=== PATIENT | male | born 1935 | race Caucasian/White ===

== ENCOUNTER 2020-05-30 14:04 | Outpatient (REF) | payer MEDICARE, SELFPAY ==
[2020-05-30 14:59] LABS: Hemoglobin 15.8 g/dl (14.0-18.0); Mean Corpuscular HGB Conc 32.9 g/dl (31.0-36.0); Mean Corpuscular Hemoglobin 28.1 pg (27.0-33.0); Mean Corpuscular Volume 85.4 fL (80-98); Mean Platelet Volume 10.8 fL (9.4-12.4); Platelet Count 275 X10*3/uL (160-400); Red Blood Count 5.62 X10*6/uL (4.60-5.80); Red Cell Distribution Width 13.5 % (11.0-16.0); White Blood Count 9.2 X10*3/uL (4.8-10.8)
[2020-05-30 15:27] LABS: Alanine Aminotransferase 18 U/L (0-40); Albumin Level 4.7 g/dL (3.5-5.0); Alkaline Phosphatase 83 U/L (39-117); Anion Gap 11 (12-20); Aspartate Amino Transferase 20 U/L (5-37); Bilirubin Direct 0.2 mg/dL (0.0-0.5); Bilirubin Total 0.8 mg/dL (0.0-1.0); Blood Urea Nitrogen 18 mg/dL (9-16); Calcium 9.9 mg/dL (8.4-10.2); Carbon Dioxide 34 mmol/L (22-29); Chloride 98 mmol/L (96-108); Cholesterol 168 mg/dL; Estimated Glomerular Filt Rate 55; Glucose Random 102 mg/dL (60-115); HDL Cholesterol 34 mg/dL; LDL Cholesterol Calculated 91 mg/dl; Sodium 139 mmol/L (135-145); Triglycerides 216 mg/dL
[2020-05-30 15:51] LABS: Thyroid Stimulating Hormone 3.38 uIU/mL (0.32-4.0)
[2020-05-30 15:52] LABS: Prostate Specific Antigen Scr 5.63 ng/mL (<0.05-4.0)
[2020-05-30 16:20] LABS: Folate 11.7 ng/mL (> or = 4.0); Vitamin B12 1689 pg/mL (200-900)
[2020-06-02 21:18] LABS: Vitamin D 25-OH, D2 <4 ng/mL; Vitamin D 25-OH, D3 26 ng/mL; Vitamin D 25-OH, Total 26 ng/mL (30-100)
== END 2020-05-30 14:05 | disposition home or self-care (01) ==
LOC: HO.LAB 14:04
PROVIDERS: PCP Internal Medicine; Visit Provider Internal Medicine
DX: Z12.5 Encounter for screening for malignant neoplasm of prostate (principal); E78.01 Familial hypercholesterolemia; E03.9 Hypothyroidism, unspecified; N40.0 Benign prostatic hyperplasia without lower urinary tract symptoms
CPT/HCPCS: 36415; 80048; 80061; 80076; 82306; 82607; 82746; 84153; 84443; 85027

== ENCOUNTER 2021-09-27 07:36 | Outpatient (REF) | payer MEDICARE, SELFPAY ==
--- NOTE | 2021-09-27 07:46 | ECG_ITS ---
Test Reason : CA MURMUR Blood Pressure : / mmHG Vent. Rate : 053 BPM Atrial Rate : 053 BPM P-R Int : 232 ms QRS Dur : 090 ms QT Int : 424 ms P-R-T Axes : 070 -06 067 degrees QTc Int : 397 ms Sinus bradycardia with 1st degree A-V block Otherwise normal ECG When compared with ECG of 22-SEP-2010 17:47, Premature atrial complexes are no longer Present Referred By: Frankie Rodriguez Electronically Signed By:Clark Gonzalez
[2021-09-27 08:03] LABS: MANUAL DIFF FLAG NO
[2021-09-27 08:38] LABS: Basophils Percent Auto 0.5 % (0-2); Eosinophils Percent Auto 5.7 % (0-4); Hematocrit 47.4 % (42.0-52.0); Hemoglobin 15.5 g/dl (14.0-18.0); Imm Gran Abs Auto 0.04 X10*3/uL (0.00-0.03); Imm Gran Pct Auto 0.4 % (0.0-0.4); Lymphocytes Percent Auto 31.4 % (20-40); Mean Corpuscular HGB Conc 32.7 g/dl (31.0-36.0); Mean Corpuscular Hemoglobin 27.7 pg (27.0-33.0); Mean Corpuscular Volume 84.6 fL (80.0-98.0); Mean Platelet Volume 10.2 fL (9.4-12.4); Monocytes Percent Auto 8.3 % (2-11); Neutrophils Absolute Auto 5.3 x10*3/uL (2.0-8.3); Neutrophils Percent Auto 53.7 % (45-73); Platelet Count 302 X10*3/uL (160-400); White Blood Count 9.9 X10*3/uL (4.8-10.8)
[2021-09-27 08:39] LABS: Basophils Absolute Auto 0.1 X10*3/uL (0.0-0.2); Eosinophils Absolute Auto 0.6 X10*3/uL (0.0-0.4); Lymphocytes Absolute Auto 3.1 X10*3/uL (1.2-4.9); Monocytes Absolute Auto 0.8 X10*3/uL (0.1-1.2)
[2021-09-27 08:56] LABS: Estimated Average Glucose 146 mg/dL; Hemoglobin A1c % 6.7 %
[2021-09-27 09:10] LABS: Alanine Aminotransferase 18 U/L (0-40); Albumin Level 4.5 g/dL (3.5-5.0); Alkaline Phosphatase 75 U/L (39-117); Anion Gap 13 (12-20); Aspartate Amino Transferase 19 U/L (5-37); Bilirubin Total 0.6 mg/dL (0.0-1.0); Blood Urea Nitrogen 22 mg/dL (9-16); Carbon Dioxide 31 mmol/L (22-29); Chloride 98 mmol/L (96-108); Cholesterol 192 mg/dL; Estimated Glomerular Filt Rate 44; Glucose Fasting 116 mg/dL (60-99); HDL Cholesterol 31 mg/dL; LDL Cholesterol Calculated 122 mg/dl; Potassium 4.1 mmol/L (3.3-5.1); Sodium 138 mmol/L (135-145); Triglycerides 196 mg/dL
[2021-09-27 09:38] LABS: Prostate Specific Antigen Scr 5.54 ng/mL (<0.05-4.0); TSH reflex Free T4 3.02 uIU/mL (0.32-4.0)
== END 2021-09-27 07:37 | disposition home or self-care (01) ==
LOC: HO.LAB 07:36
PROVIDERS: PCP Internal Medicine; Visit Provider Nurse Practitioner Family
DX: Z12.5 Encounter for screening for malignant neoplasm of prostate (principal); R01.1 Cardiac murmur, unspecified; E03.9 Hypothyroidism, unspecified; I10 Essential (primary) hypertension; N40.0 Benign prostatic hyperplasia without lower urinary tract symptoms; E78.00 Pure hypercholesterolemia, unspecified; E11.9 Type 2 diabetes mellitus without complications
CPT/HCPCS: 36415; 80053; 80061; 83036; 84153; 84443; 85025; 93005

== ENCOUNTER 2022-01-21 06:40 | Outpatient (REF) | payer MEDICARE, SELFPAY ==
[2022-01-21 07:52] LABS: Anion Gap 17 (12-20); Blood Urea Nitrogen 22 mg/dL (9-16); Carbon Dioxide 29 mmol/L (22-29); Chloride 97 mmol/L (96-108); Estimated Glomerular Filt Rate 47; Glucose Random 121 mg/dL (60-115); Potassium 3.8 mmol/L (3.3-5.1); Sodium 139 mmol/L (135-145)
== END 2022-01-21 06:41 | disposition home or self-care (01) ==
LOC: HO.LAB 06:40
PROVIDERS: PCP Internal Medicine; Visit Provider Internal Medicine
DX: I10 Essential (primary) hypertension (principal)
CPT/HCPCS: 36415; 80048

== ENCOUNTER 2022-03-21 09:02 | Outpatient (REF) | payer MEDICARE, SELFPAY ==
[2022-03-21 09:53] LABS: Hematocrit 46.7 % (42.0-52.0); Hemoglobin 15.5 g/dl (14.0-18.0); Mean Corpuscular HGB Conc 33.2 g/dl (31.0-36.0); Mean Corpuscular Hemoglobin 28.3 pg (27.0-33.0); Mean Corpuscular Volume 85.2 fL (80.0-98.0); Mean Platelet Volume 10.5 fL (9.4-12.4); Platelet Count 290 X10*3/uL (160-400); Red Blood Count 5.48 X10*6/uL (4.60-5.80); Red Cell Distribution Width 13.5 % (11.0-16.0); White Blood Count 8.3 X10*3/uL (4.8-10.8)
[2022-03-21 12:04] LABS: Alanine Aminotransferase 20 U/L (0-40); Albumin Level 4.5 g/dL (3.5-5.0); Alkaline Phosphatase 78 U/L (39-117); Anion Gap 14 (12-20); Aspartate Amino Transferase 22 U/L (5-37); Bilirubin Total 0.5 mg/dL (0.0-1.0); Blood Urea Nitrogen 22 mg/dL (9-16); Calcium 10.3 mg/dL (8.4-10.2); Carbon Dioxide 30 mmol/L (22-29); Chloride 98 mmol/L (96-108); Cholesterol 193 mg/dL; Estimated Glomerular Filt Rate 53; Glucose Random 116 mg/dL (60-115); HDL Cholesterol 30 mg/dL; LDL Cholesterol Calculated 119 mg/dl; Potassium 4.1 mmol/L (3.3-5.1); Sodium 138 mmol/L (135-145); Thyroid Stimulating Hormone 3.84 uIU/mL (0.32-4.0); Total Protein 7.6 g/dL (6.5-8.0); Triglycerides 224 mg/dL
[2022-03-21 12:08] LABS: Bilirubin Direct 0.2 mg/dL (0.0-0.5)
== END 2022-03-21 09:03 | disposition home or self-care (01) ==
LOC: HO.LAB 09:02
PROVIDERS: PCP Internal Medicine; Visit Provider Internal Medicine
DX: I12.9 Hypertensive chronic kidney disease with stage 1 through stage 4 chronic kidney disease, or unspecified chronic kidney disease (principal); N18.30 Chronic kidney disease, stage 3 unspecified; E03.9 Hypothyroidism, unspecified; E78.01 Familial hypercholesterolemia
CPT/HCPCS: 36415; 80048; 80061; 80076; 84443; 85027